=== PATIENT | female | born 2000 | race Caucasian/White ===

== ENCOUNTER 2022-05-13 17:04 | Inpatient (IN) ==
[2022-05-13 18:15] LABS: Basophils # 0.1 K/mcL (0.0-0.2); Basophils % 0.5 %; Eosinophils # 0.1 K/mcL (0.0-0.6); Hematocrit 42.3 % (35.3-44.9); Hemoglobin 13.9 g/dL (11.5-15.4); Immature Granulocytes % 0.2 % (0-4); Lymphocytes # 4.4 K/mcL (0.6-4.6); Lymphocytes % 33.7 %; Mean Corpuscular HGB Conc 32.9 g/dL (31.6-35.5); Mean Corpuscular Hemoglobin 31.7 pg (28.0-33.3); Mean Corpuscular Volume 96.4 fL (83.0-100.0); Mean Platelet Volume 9.9 fL (9.4-12.4); Monocytes # 0.6 K/mcL (0.0-1.3); Monocytes % 4.8 %; Neutrophils # 7.8 K/mcL (1.6-8.9); Platelet Count 265 K/mcL (140-400); Red Blood Count 4.39 M/mcL (3.82-4.97); Red Cell Distribution Width 12.1 % (11.5-14.5); Segmented Neutrophils % 59.8 %; White Blood Count 13.1 K/mcL (4.3-11.1)
[2022-05-13 18:19] LABS: Bilirubin,Urine Negative (Negative); Blood,Urine Large (Negative); Clarity,Urine Turbid (Clear); Color,Urine Yellow (Yellow); Glucose,Urine (UA) 300 mg/dL (Normal); Ketones,Urine Trace mg/dL (Negative); Leukocyte Esterase,Urine Negative (Negative); Mucus,Urine Few per lpf (None-Few); Nitrite,Urine Negative (Negative); PH,Urine 5.5 pH Units (5.0-8.0); Protein,Urine Trace mg/dL (Neg-Trace); RBC,Urine TNTC per hpf (0-3); Specific Gravity,Urine > 1.030 (1.010-1.025); Squamous Epithelial Cell,Urine Few per hpf (None-Few); Urobilinogen,Urine Normal (Normal)
[2022-05-13 18:25] LABS: Amphetamine Screen,Urine Positive ng/mL (Cutoff=1000); Barbiturate Screen,Urine Negative ng/mL (Cutoff=200); Benzodiazepines Screen,Urine Negative ng/mL (Cutoff=200); Cannabinoid Screen,Urine Positive ng/mL (Cutoff = 50); Cocaine Screen,Urine Negative ng/mL (Cutoff= 300); Opiate Screen,Urine Negative ng/mL (Cutoff=300); Phencyclidine Screen,Urine Negative ng/mL (Cutoff=25)
[2022-05-13 18:36] LABS: BUN/Creatinine Ratio 18 (6-26); Blood Urea Nitrogen 14 mg/dL (6-20); Calcium 9.5 mg/dL (8.6-10.3); Carbon Dioxide 25 mEq/L (23-29); Chloride 106 mEq/L (98-107); Ethanol < 10 mg/dL (Less than 10); Glucose 155 mg/dL (70-105); Osmolality,Calculated 288 (280-300); Potassium 3.7 mEq/L (3.5-5.1); Sodium 137 mEq/L (136-145)
[2022-05-13 22:47] LABS: Influenza A PCR Negative (Negative); Influenza B PCR Negative (Negative); Resp. Syncytial Virus PCR Negative (Negative)
[2022-05-13 22:53] LABS: SARS-CoV-2 by PCR (In House) Negative (Negative)
[2022-05-13] MEDS ORDERED: *HR* LORazepam 1 MG TABLET PO PRN (23:48)
[2022-05-13] MEDS ORDERED: *HR* LORazepam 2 MG/ML VIAL IM PRN (23:48)
[2022-05-13] MEDS ORDERED: Haloperidol Lactate 5 MG/ML VIAL IM PRN (23:48)
[2022-05-13] MEDS ORDERED: haloperidoL 5 MG TABLET PO PRN (23:48)
[2022-05-14] MEDS: traZODone 50 MG TABLET PO PRN ×2 (00:49→20:45)
[2022-05-14] MEDS: hydrOXYzine pamoate 25 MG CAPSULE PO PRN ×2 (00:49→20:46)
[2022-05-14] MEDS: Ibuprofen 400 MG TABLET PO PRN (00:49)
[2022-05-14] MEDS ORDERED: MOM Conc 10 ML UD.LIQ PO PRN (08:15)
[2022-05-14] MEDS ORDERED: Mag Hydrox/Al Hydrox/Simeth 30 ML UDC PO PRN (08:15)
[2022-05-14] MEDS: Nicotine 2 MG GUM BC PRN ×4 (11:34→20:48)
[2022-05-14 15:02] LABS: Estimated Average Glucose 160 mg/dl; Hemoglobin A1C 7.2 %
[2022-05-14] MEDS: Neosporin OINT 15 GM TUBE TP SCH ×2 (17:22→20:49)
[2022-05-14] MEDS: risperiDONE 1 MG TABLET PO SCH (20:46)
[2022-05-14] MEDS: Gabapentin 300 MG CAPSULE PO SCH (20:46)
[2022-05-15] MEDS: Gabapentin 300 MG CAPSULE PO SCH ×2 (08:33→21:05)
[2022-05-15] MEDS: Nicotine 2 MG GUM BC PRN ×4 (08:33→21:05)
[2022-05-15] MEDS: Neosporin OINT 15 GM TUBE TP SCH ×3 (08:36→21:05)
[2022-05-15] MEDS: *HR* Metformin 500 MG TABLET PO SCH (17:42)
[2022-05-15] MEDS: risperiDONE 1 MG TABLET PO SCH (21:05)
[2022-05-15] MEDS: traZODone 50 MG TABLET PO PRN (21:05)
[2022-05-16] MEDS: Neosporin OINT 15 GM TUBE TP SCH ×3 (08:38→19:58)
[2022-05-16] MEDS: *HR* Metformin 500 MG TABLET PO SCH ×2 (08:39→16:33)
[2022-05-16] MEDS: Gabapentin 300 MG CAPSULE PO SCH ×2 (08:39→20:53)
[2022-05-16] MEDS: hydrOXYzine pamoate 25 MG CAPSULE PO PRN ×2 (08:40→13:03)
[2022-05-16] MEDS: Nicotine 2 MG GUM BC PRN ×3 (10:49→19:53)
[2022-05-16] MEDS ORDERED: Paliperidone Palmitate 234 MG/1.5 ML SYRINGE IM SCH (14:00)
[2022-05-16] MEDS: Ibuprofen 400 MG TABLET PO PRN (14:21)
[2022-05-16] MEDS: traZODone 50 MG TABLET PO PRN (20:54)
[2022-05-16] MEDS: risperiDONE 1 MG TABLET PO SCH (20:54)
[2022-05-17] MEDS: Gabapentin 300 MG CAPSULE PO SCH (07:43)
[2022-05-17] MEDS: *HR* Metformin 500 MG TABLET PO SCH (07:43)
[2022-05-17] MEDS: Nicotine 2 MG GUM BC PRN ×2 (07:44→11:38)
[2022-05-17] MEDS: Neosporin OINT 15 GM TUBE TP SCH (08:35)
[2022-05-17] MEDS ORDERED: Paliperidone Palmitate 234 MG/1.5 ML SYRINGE IM SCH (09:00)
[2022-05-17 09:51] VITALS: BP 113/79; PULSE 105; TEMP 97.4; O2SAT 97
== END 2022-05-17 12:55 | disposition home or self-care (01) | DRG 750 ==
LOC: EMEROOARM 17:04 → 1ANU 23:43
PROVIDERS: ADMIT Psychiatry & Neurology Psychiatry; ATTEND Psychiatry & Neurology Psychiatry